=== PATIENT | female | born 1960 | race Caucasian/White ===

== ENCOUNTER 2022-05-05 18:59 | Emergency (ER) | payer SELFPAY ==
[~2022-05-05] VITALS: Ht 165.1 cm; Wt 72.3 kg
[2022-05-05 19:02] VITALS: TEMP 97.2
[2022-05-05] MEDS ORDERED: PREDNISONE10 MG PO (20:01)
[2022-05-05 20:15] VITALS: PULSE 84
== END 2022-05-05 20:15 | disposition home or self-care (01) ==
LOC: COL.ER 18:59
DX: L23.7 Allergic contact dermatitis due to plants, except food (principal); U07.1 COVID-19
CPT/HCPCS: J7512